=== PATIENT | female | born 1980 | race Hispanic/Latino ===

== ENCOUNTER 2020-06-29 00:11 | Inpatient (IN) | payer OTHER ==
[~2020-06-29] VITALS: Ht 170.2 cm; Wt 124.3 kg
[2020-06-29 01:14] LABS: CREATININE 0.9 mg/dL (0.5-1.5); POTASSIUM 3.5 mmol/L (3.5-5.1)
[2020-06-29 01:17] LABS: BASOPHILS % (AUTO) 0.4 % (0.0-5.0); EOSINOPHILS % (AUTO) 0.6 % (0.0-8.0); LYMPHOCYTES % (AUTO) 28.2 % (21.0-51.0); MEAN CORPUSCULAR HEMOGLOBIN 17.4 pg (27.0-33.0); MEAN CORPUSCULAR VOLUME 69.6 fL (79-99); MONOCYTES % (AUTO) 6.5 % (3.0-13.0); NEUTROPHILS % (AUTO) 63.4 % (40.0-77.0); NUCLEATED RED BLOOD CELLS 0.3 % (0.0-0.19); PLATELET COUNT (AUTO) 597 K/uL (130-400); RED BLOOD CELL COUNT(AUTO) 3.16 MIL/uL (4.00-5.50); RED CELL DISTRIBUTION WIDTH 18.3 % (11.0-15.5); WHITE BLOOD COUNT (AUTO) 9.4 K/uL (4.8-10.8)
[2020-06-29 01:31] LABS: INR 1.05 (0.85-1.15); PROTHROMBIN TIME 11.4 SEC (9.6-11.6)
[2020-06-29 01:32] LABS: PARTIAL THROMBOPLASTIN TIME 20.6 SEC (26.3-35.5)
[2020-06-29] MEDS ORDERED: ONDANSETRON HCL 4 MG/2 ML VIAL IV PRN (02:00)
[2020-06-29] MEDS ORDERED: FAMOTIDINE/PF 20 MG/2 ML VIAL IV ONE (08:17)
[2020-06-29] MEDS ORDERED: FAMOTIDINE/PF 20 MG/2 ML VIAL IV SCH (09:00)
[2020-06-29] MEDS ORDERED: LACTATED RINGERS 1000ML 1,000 ML IV ONE (10:26)
[2020-06-29 10:29] LABS: BASOPHILS % (AUTO) 0.5 % (0.0-5.0); EOSINOPHILS % (AUTO) 0.5 % (0.0-8.0); HEMATOCRIT 26.7 % (36-48); LYMPHOCYTES % (AUTO) 31.1 % (21.0-51.0); MEAN CORPUSCULAR HEMOGLOBIN 20.4 pg (27.0-33.0); MEAN CORPUSCULAR HGB CONC 27.7 g/dL (32.0-36.0); MEAN CORPUSCULAR VOLUME 73.8 fL (79-99); MONOCYTES % (AUTO) 7.3 % (3.0-13.0); NEUTROPHILS % (AUTO) 59.8 % (40.0-77.0); NUCLEATED RED BLOOD CELLS 0.3 % (0.0-0.19); PLATELET COUNT (AUTO) 481 K/uL (130-400); RED BLOOD CELL COUNT(AUTO) 3.62 MIL/uL (4.00-5.50); RED CELL DISTRIBUTION WIDTH 20.2 % (11.0-15.5); WHITE BLOOD COUNT (AUTO) 7.5 K/uL (4.8-10.8)
[2020-06-29] MEDS ORDERED: TRANEXAMIC ACID 1,000 MG in SODIUM CHLORIDE 0.9% 100 ML IV SCH (10:30)
[2020-06-29 10:47] LABS: TROPONIN I 0.17 ng/mL (0.00-0.06)
[2020-06-29] MEDS ORDERED: LIDOCAINE HCL-MPF 1% 2ML VIAL ONE (11:49)
[2020-06-29] MEDS ORDERED: POTASSIUM CHLORIDE 20MEQ/100ML 100 ML IV ONE (11:49)
[2020-06-29] MEDS: LACTATED RINGERS 1000ML 1,000 ML IV SCH (15:20)
[2020-06-29 15:58] LABS: TROPONIN I 0.16 ng/mL (0.00-0.06)
[2020-06-29 18:14] LABS: HEMATOCRIT 29.6 % (36-48)
[2020-06-29 19:00] VITALS: BP 131/53
[2020-06-29] MEDS: FAMOTIDINE/PF 20 MG/2 ML VIAL IV SCH (19:59)
[2020-06-29 23:00] VITALS: BP 137/80
[2020-06-30 03:00] VITALS: BP 100/48
[2020-06-30] MEDS: LACTATED RINGERS 1000ML 1,000 ML IV SCH (04:19)
[2020-06-30 08:00] VITALS: BP 131/84
[2020-06-30] MEDS: FAMOTIDINE/PF 20 MG/2 ML VIAL IV SCH ×2 (09:08→19:49)
[2020-06-30] MEDS ORDERED: COMPOUND IV MISC 1 EACH IVSOLN MISC PRN (10:00)
[2020-06-30 12:00] VITALS: BP 103/60
[2020-06-30] MEDS: IRON SUCROSE COMPLEX 300 MG in SODIUM CHLORIDE 0.9% 50 ML IV SCH (13:50)
[2020-06-30 13:52] LABS: TROPONIN I 0.15 ng/mL (0.00-0.06)
[2020-06-30 16:00] VITALS: BP 144/92
[2020-06-30 20:00] VITALS: BP 133/61
[2020-06-30 21:52] LABS: TROPONIN I 0.13 ng/mL (0.00-0.06)
[2020-06-30 23:37] VITALS: BP 122/57
[2020-07-01] VITALS (24 sets, daily range): BP systolic 116–143; BP diastolic 47–81
[2020-07-01 05:13] LABS: HEMATOCRIT 25.6 % (36-48); MEAN CORPUSCULAR HEMOGLOBIN 20.2 pg (27.0-33.0); MEAN CORPUSCULAR HGB CONC 27.3 g/dL (32.0-36.0); RED BLOOD CELL COUNT(AUTO) 3.46 MIL/uL (4.00-5.50); RED CELL DISTRIBUTION WIDTH 20.8 % (11.0-15.5); WHITE BLOOD COUNT (AUTO) 8.7 K/uL (4.8-10.8)
[2020-07-01 05:38] LABS: CREATININE 0.8 mg/dL (0.5-1.5); THYROID STIMULATING HORMONE 4.11 uIU/mL (0.36-3.74)
[2020-07-01] MEDS ORDERED: SODIUM CHLORIDE 0.9% 250 ML IV ONE (08:35)
[2020-07-01] MEDS: FAMOTIDINE/PF 20 MG/2 ML VIAL IV SCH ×2 (08:45→21:11)
[2020-07-01] MEDS: IRON SUCROSE COMPLEX 300 MG in SODIUM CHLORIDE 0.9% 50 ML IV SCH (08:46)
[2020-07-01] MEDS: ASCORBIC ACID 500 MG TAB PO SCH (08:46)
[2020-07-01] MEDS ORDERED: SUCCINYLCHOLINE CHLORIDE 20 MG/ML 10 ML VIAL ONE (10:28)
[2020-07-01] MEDS ORDERED: PROPOFOL 10 MG/ML 20ML VIAL IV ONE (10:28)
[2020-07-01] MEDS ORDERED: ROCURONIUM 10MG/1ML SYR 10 MG/ML ML ONE ×2 (10:28→11:47)
[2020-07-01] MEDS ORDERED: FENTANYL CITRATE PF 50 MCG/1 ML 2ML VIAL ONE ×2 (10:28→12:20)
[2020-07-01] MEDS ORDERED: LIDOCAINE PF 2% 5ML ABBOJECT ONE (10:28)
[2020-07-01] MEDS ORDERED: MIDAZOLAM HCL 1 MG/ML 2ML VIAL ONE (10:48)
[2020-07-01] MEDS ORDERED: CALDOLOR 800MG+NS 250ML 250 ML IV ONE (11:27)
[2020-07-01] MEDS ORDERED: EPHEDRINE SULFATE 50 MG/ML AMPULE ONE (11:29)
[2020-07-01] MEDS ORDERED: ONDANSETRON HCL 4 MG/2 ML VIAL ONE (12:04)
[2020-07-01] MEDS ORDERED: GLYCOPYRROLATE 1 MG/5 ML SYRINGE ONE (12:04)
[2020-07-01] MEDS ORDERED: NEOSTIGMINE 5MG/5ML SYR IV ONE (12:04)
[2020-07-01] MEDS ORDERED: MEPERIDINE-PF 25 MG/ML SYG ONE ×2 (12:17→13:16)
[2020-07-01] MEDS ORDERED: DEXTROSE 5 %-0.45 % NACL 1,000 ML IV PRN (12:45)
[2020-07-01] MEDS ORDERED: ACETAMINOPHEN-CODEINE 300/30MG TAB PO PRN (12:45)
[2020-07-01] MEDS ORDERED: DOCUSATE SODIUM 100 MG CAP PO PRN ×2 (12:45)
[2020-07-01] MEDS ORDERED: SIMETHICONE 80 MG TAB.CHEW PO PRN ×2 (12:45)
[2020-07-01] MEDS ORDERED: PROMETHAZINE HCL 25 MG/ML 1ML AMPULE IM PRN ×2 (12:45)
[2020-07-01] MEDS ORDERED: MEPERIDINE-PF 75 MG/ML SYG IM PRN (12:45)
[2020-07-01] MEDS ORDERED: ONDANSETRON HCL 4 MG/2 ML VIAL IVP PRN (12:45)
[2020-07-01] MEDS ORDERED: DIPH,PERTUSS(ACELL),TET VAC/PF 0.5 ML VIAL IM SCH ×2 (12:45→16:15)
[2020-07-01] MEDS ORDERED: BISACODYL 10 MG SUPP.RECT RC PRN ×2 (12:45)
[2020-07-01] MEDS: IBUPROFEN 800 MG TAB PO SCH ×2 (12:45→17:23)
[2020-07-01] MEDS ORDERED: HYDROCODONE/ACETAMINOPHEN 5/325 MG TAB PO PRN (12:45)
[2020-07-01 14:26] LABS: BASOPHILS % (AUTO) 0.3 % (0.0-5.0); EOSINOPHILS % (AUTO) 0.1 % (0.0-8.0); LYMPHOCYTES % (AUTO) 9.5 % (21.0-51.0); MEAN CORPUSCULAR HEMOGLOBIN 21.8 pg (27.0-33.0); MEAN CORPUSCULAR HGB CONC 28.1 g/dL (32.0-36.0); MEAN CORPUSCULAR VOLUME 77.4 fL (79-99); MONOCYTES % (AUTO) 5.1 % (3.0-13.0); NEUTROPHILS % (AUTO) 83.9 % (40.0-77.0); PLATELET COUNT (AUTO) 457 K/uL (130-400); RED BLOOD CELL COUNT(AUTO) 3.49 MIL/uL (4.00-5.50); RED CELL DISTRIBUTION WIDTH 21.8 % (11.0-15.5); WHITE BLOOD COUNT (AUTO) 20.1 K/uL (4.8-10.8)
[2020-07-01 14:39] LABS: CREATININE 0.7 mg/dL (0.5-1.5)
[2020-07-01 14:50] LABS: TROPONIN I 0.14 ng/mL (0.00-0.06)
[2020-07-01] MEDS ORDERED: MEDR10TA11 PO (14:52)
[2020-07-01] MEDS ORDERED: [UNRECOGNIZED DRUG - CODE] PO (14:52)
[2020-07-01] MEDS ORDERED: FERR325T29 PO (14:52)
[2020-07-01] MEDS ORDERED: LEVO1TAB60 PO (14:52)
[2020-07-01] MEDS: CALDOLOR 800MG+NS 250ML 250 ML IVPB SCH (21:12)
[2020-07-02] MEDS: IBUPROFEN 800 MG TAB PO SCH ×2 (00:28→05:47)
[2020-07-02 03:10] VITALS: BP 140/83
[2020-07-02] MEDS: CALDOLOR 800MG+NS 250ML 250 ML IVPB SCH (04:15)
[2020-07-02 06:17] LABS: BASOPHILS % (AUTO) 0.3 % (0.0-5.0); EOSINOPHILS % (AUTO) 0.1 % (0.0-8.0); HEMATOCRIT 27.3 % (36-48); LYMPHOCYTES % (AUTO) 13.1 % (21.0-51.0); MEAN CORPUSCULAR HEMOGLOBIN 20.8 pg (27.0-33.0); MEAN CORPUSCULAR HGB CONC 27.5 g/dL (32.0-36.0); MEAN CORPUSCULAR VOLUME 75.6 fL (79-99); MONOCYTES % (AUTO) 7.7 % (3.0-13.0); NEUTROPHILS % (AUTO) 77.8 % (40.0-77.0); PLATELET COUNT (AUTO) 484 K/uL (130-400); RED BLOOD CELL COUNT(AUTO) 3.61 MIL/uL (4.00-5.50); RED CELL DISTRIBUTION WIDTH 22.4 % (11.0-15.5); WHITE BLOOD COUNT (AUTO) 13.3 K/uL (4.8-10.8)
[2020-07-02 06:26] LABS: CREATININE 0.6 mg/dL (0.5-1.5); POTASSIUM 3.5 mmol/L (3.5-5.1)
[2020-07-02 08:45] VITALS: BP 133/76
[2020-07-02] MEDS: FAMOTIDINE/PF 20 MG/2 ML VIAL IV SCH (08:55)
[2020-07-02] MEDS: IRON SUCROSE COMPLEX 300 MG in SODIUM CHLORIDE 0.9% 50 ML IV SCH (08:55)
[2020-07-02] MEDS: ASCORBIC ACID 500 MG TAB PO SCH (08:55)
[2020-07-02 11:30] VITALS: BP 135/70
[2020-07-02] MEDS ORDERED: IBUPROFEN 800 MG TAB PO SCH (12:45)
== END 2020-07-02 12:50 | disposition home or self-care (01) | DRG 742 ==
LOC: EDH 00:11 → EDHIP 00:12 → 4DH 18:28
PROVIDERS: ADMIT Family Medicine; ATTEND Family Medicine
PROC: 30233N1 Transfusion of Nonautologous Red Blood Cells into Peripheral Vein, Percutaneous Approach (ICD-10-PCS; 2020-06-29)
PROC: 3E0234Z Introduction of Serum, Toxoid and Vaccine into Muscle, Percutaneous Approach (ICD-10-PCS; 2020-07-01)
PROC: 0UT90ZZ Resection of Uterus, Open Approach (ICD-10-PCS; principal; 2020-07-01 10:50)
DX: D25.9 Leiomyoma of uterus, unspecified (principal); Z68.41 Body mass index [BMI] 40.0-44.9, adult; D50.0 Iron deficiency anemia secondary to blood loss (chronic); E66.01 Morbid (severe) obesity due to excess calories; E78.00 Pure hypercholesterolemia, unspecified; E78.5 Hyperlipidemia, unspecified; N92.1 Excessive and frequent menstruation with irregular cycle; D47.3 Essential (hemorrhagic) thrombocythemia; R79.89 Other specified abnormal findings of blood chemistry; Y90.2 Blood alcohol level of 40-59 mg/100 ml; Z82.49 Family history of ischemic heart disease and other diseases of the circulatory system; Z90.49 Acquired absence of other specified parts of digestive tract; Z83.3 Family history of diabetes mellitus; Z23 Encounter for immunization
CPT/HCPCS: 36415; 36430; 71045; 76830; 80048; 81025; 82550; 83874; 84443; 84484; 85014; 85018; 85025; 85027; 85378; 85610; 85730; 86850; 86900; 86901; 86923; 90715; 93005; 93306; 93356; 93970; A4344; G0378; J0330; J1741; J1756; J2001; J2175; J2250; J2405; J2704; J2710; J3010; J3480; J3490; J7030; J7050; J7120; P9016

== ENCOUNTER 2020-12-25 16:03 | Emergency (ER) | payer MEDICAID, OTHER ==
[~2020-12-25] VITALS: Ht 170.2 cm; Wt 127.0 kg
[~2020-12-25 16:03] MED LIST: FERR325T29 PO; LEVO1TAB60 PO; MEDR10TA11 PO; [UNRECOGNIZED DRUG - CODE] PO
[2020-12-25] MEDS ORDERED: MAG/ALUM/SIMETH 30 ML UDCUP ONE (16:32)
[2020-12-25 16:37] LABS: BASOPHILS % (AUTO) 0.4 % (0.0-5.0); EOSINOPHILS % (AUTO) 0.7 % (0.0-8.0); HEMATOCRIT 43.3 % (36-48); LYMPHOCYTES % (AUTO) 25.7 % (21.0-51.0); MEAN CORPUSCULAR HEMOGLOBIN 22.5 pg (27.0-33.0); MEAN CORPUSCULAR HGB CONC 30.3 g/dL (32.0-36.0); MEAN CORPUSCULAR VOLUME 74.5 fL (79-99); MONOCYTES % (AUTO) 6.4 % (3.0-13.0); NEUTROPHILS % (AUTO) 66.4 % (40.0-77.0); PLATELET COUNT (AUTO) 420 K/uL (130-400); RED BLOOD CELL COUNT(AUTO) 5.81 MIL/uL (4.00-5.50); RED CELL DISTRIBUTION WIDTH 20.2 % (11.0-15.5); WHITE BLOOD COUNT (AUTO) 10.5 K/uL (4.8-10.8)
[2020-12-25 16:53] LABS: CREATININE 0.7 mg/dL (0.5-1.5); POTASSIUM 3.7 mmol/L (3.5-5.1)
[2020-12-25 16:58] LABS: ALBUMIN 3.4 g/dL (3.5-5.0); BILIRUBIN,TOTAL 0.3 mg/dL (0.2-1.0); TOTAL PROTEIN, SERUM 7.8 g/dL (6.0-8.3)
[2020-12-25] MEDS ORDERED: ASPIRIN 325MG TAB ONE (17:06)
[2020-12-25] MEDS ORDERED: ONDANSETRON 4MG INJ ONE (17:06)
[2020-12-25] MEDS ORDERED: MORPHINE 4 MG SYG ONE (17:06)
[2020-12-25] MEDS ORDERED: 0.9%NACL 1000ML 1,000 ML IV ONE ×2 (17:06→17:30)
[2020-12-25] MEDS ORDERED: MORPHINE 4 MG SYG IVP ONE (17:30)
[2020-12-25] MEDS ORDERED: ONDANSETRON 4MG INJ IVP ONE (17:30)
[2020-12-25] MEDS ORDERED: ASPIRIN 325MG TAB PO ONE (17:30)
[2020-12-25 21:01] VITALS: BP 119/59
[2020-12-25 21:03] LABS: APPEARANCE,URINE Clear (CLEAR); BILIRUBIN,URINE Negative (NEGATIVE); COLOR,URINE Yellow (YELLOW); GLUCOSE, URINE (UA) Negative (NEGATIVE); KETONES,URINE Negative (NEGATIVE); LEUKOCYTE ESTERASE ,URINE Small (NEGATIVE); NITRATE,URINE Negative (NEGATIVE); OCCULT BLOOD,URINE Negative (NEGATIVE); PH,URINE 5.5 (5.0-8.0); PROTEIN,URINE Negative (NEGATIVE)
[2020-12-25 21:09] LABS: RBC,URINE 0-1 /HPF (0-1)
[2020-12-25 21:10] LABS: BACTERIA,URINE Few /HPF (None Seen); MUCUS,URINE Few LPF (None Seen); SQUAMOUS EPITHELIAL CELL,UR Few /HPF (0-2)
[2020-12-25] MEDS ORDERED: CYCL5TAB PO (21:21)
[2020-12-25] MEDS ORDERED: IBUP-2070 PO (21:21)
== END 2020-12-25 21:46 | disposition home or self-care (01) ==
LOC: EDH 16:03
DX: S29.011A Strain of muscle and tendon of front wall of thorax, initial encounter (principal); E78.5 Hyperlipidemia, unspecified; Z79.3 Long term (current) use of hormonal contraceptives; Z79.82 Long term (current) use of aspirin; Z79.899 Other long term (current) drug therapy; Z90.49 Acquired absence of other specified parts of digestive tract; Z90.710 Acquired absence of both cervix and uterus; X58.XXXA Exposure to other specified factors, initial encounter; Y93.89 Activity, other specified; Y92.89 Other specified places as the place of occurrence of the external cause; Y99.8 Other external cause status
CPT/HCPCS: 36415; 71045; 80053; 81001; 83690; 84484 ×2; 85025; 87077; 87088; 87186; 93005; 96361; 96374; 96375; 99285; J2270; J2405; J7030